=== PATIENT | female | born 1985 | race Two or more races ===

== ENCOUNTER 2022-12-01 13:21 | Emergency (ER) | payer OTHER ==
[~2022-12-01] VITALS: Ht 162.6 cm; Wt 59.0 kg
== END 2022-12-01 19:34 | disposition home or self-care (01) ==
LOC: ER 13:21
DX: S92.355A Nondisplaced fracture of fifth metatarsal bone, left foot, initial encounter for closed fracture (principal); X58.XXXA Exposure to other specified factors, initial encounter; Y93.9 Activity, unspecified; Y92.9 Unspecified place or not applicable; Y99.9 Unspecified external cause status